=== PATIENT | female | born 1950 | race Caucasian/White ===

== ENCOUNTER 2017-12-31 08:13 | Day surgery (SDC) | payer BC, OTHER ==
[~2017-12-31] VITALS: Ht 157.5 cm; Wt 63.0 kg
[2017-12-31] MEDS ORDERED: LACTATED RINGERS 1,000 ML IV SCH (09:16)
[2017-12-31] MEDS ORDERED: LIDOCAINE-MPF 1%, 2ML INFIL ONE (09:30)
[2017-12-31 10:00] VITALS: BP 154/86
[2017-12-31] MEDS ORDERED: PLEASE ENTER HEIGHT AND WEIGHT MC SCH (10:00)
[2017-12-31] MEDS ORDERED: PLEASE ENTER ALLERGIES MC SCH (10:00)
[2017-12-31] MEDS ORDERED: ATEN25TA PO (10:17)
[2017-12-31] MEDS ORDERED: PANT40TA5 PO (10:17)
[2017-12-31] MEDS ORDERED: FLUO20TA25 PO (10:17)
[2017-12-31] MEDS ORDERED: ALPR0.5T6 PO (10:17)
[2017-12-31] MEDS ORDERED: CHOL4PAC2 PO (10:18)
[2017-12-31] MEDS ORDERED: MIDAZOLAM 1 MG/ML, 2ML ONE (10:25)
[2017-12-31] MEDS ORDERED: FENTANYL PF 100 MCG/2ML ONE (10:25)
[2017-12-31] MEDS ORDERED: SUCCINYLCHOLINE 20 MG/ML, 10ML ONE (10:26)
[2017-12-31] MEDS ORDERED: CEFAZOLIN 1,000 MG ONE ×3 (10:26→13:09)
[2017-12-31] MEDS ORDERED: PROPOFOL 10 MG/ML, 20ML ONE (10:26)
[2017-12-31] MEDS ORDERED: DEXAMETHASONE 4 MG/ML, 1ML ONE ×3 (10:26→13:09)
[2017-12-31] MEDS ORDERED: BUPIVACAINE/PF-EPI 0.25% 1:200K ONE ×2 (12:48→13:11)
[2017-12-31] MEDS ORDERED: VANCOMYCIN 1,000 MG ONE (12:49)
[2017-12-31] MEDS ORDERED: THROMBIN 5,000 UNIT VIAL TP ONE (12:49)
[2017-12-31] MEDS ORDERED: LIDOCAINE/PF 0.5% ,50ML ONE (12:49)
[2017-12-31] MEDS ORDERED: SCOPOLAMINE PATCH, 1.5MG PATCH.TD72 TD ONE ×2 (12:54→13:00)
[2017-12-31] MEDS ORDERED: PROPOFOL 50 ML ONE ×2 (13:03→14:30)
[2017-12-31] MEDS ORDERED: PHENYLEPHRINE 10 MG/ML ONE (13:09)
[2017-12-31] MEDS ORDERED: METOCLOPRAMIDE 5 MG/ML, 2ML ONE (13:09)
[2017-12-31] MEDS ORDERED: ONDANSETRON 2MG/ML, 2ML ONE ×2 (13:09→14:57)
[2017-12-31] MEDS ORDERED: FENTANYL PF 100 MCG/2ML IV PRN (14:00)
[2017-12-31] MEDS ORDERED: MORPHINE SULFATE 4 MG/ML, 1ML IVPush PRN (14:00)
[2017-12-31] MEDS ORDERED: DIPHENHYDRAMINE 50 MG/ML, 1ML IVPush PRN (14:00)
[2017-12-31] MEDS ORDERED: hydrALAzine 20 MG/ML, 1ML IV PRN (14:00)
[2017-12-31] MEDS ORDERED: ONDANSETRON 2MG/ML, 2ML IV PRN (14:00)
[2017-12-31] MEDS ORDERED: OXYcodone 5 MG/5 ML ORAL.SOL UDC PO PRN (14:00)
[2017-12-31] MEDS ORDERED: MEPERIDINE/PF 25MG/0.5ML IVPush PRN (14:00)
[2017-12-31] MEDS ORDERED: LORazepam 2 MG/ML, 1ML IVPush PRN (14:00)
[2017-12-31] MEDS ORDERED: DIAZEPAM 5 MG/ML, 2ML IVPush PRN (14:00)
[2017-12-31] MEDS ORDERED: MIDAZOLAM 1 MG/ML, 2ML IV PRN (14:00)
[2017-12-31] MEDS ORDERED: ALBUTEROL SULFATE 2.5 MG/3 ML NPPB PRN (14:00)
[2017-12-31] MEDS ORDERED: HYDROmorphone 1 MG/ML, 1ML IV PRN (14:00)
[2017-12-31] MEDS ORDERED: LABETALOL 5MG/ML, 20ML IV PRN (14:00)
[2017-12-31] MEDS ORDERED: EPHEDRINE 50 MG/ML, 1ML IM PRN (14:00)
[2017-12-31] MEDS ORDERED: OXYcodone 5 MG/5 ML ORAL.SOL UDC ONE (15:30)
== END 2017-12-31 17:30 | disposition home or self-care (01) ==
LOC: OUT 08:13
PROVIDERS: ATTEND Orthopaedic Surgery Orthopaedic Surgery of the Spine
DX: M51.16 Intervertebral disc disorders with radiculopathy, lumbar region (principal); M48.061 Spinal stenosis, lumbar region without neurogenic claudication; I10 Essential (primary) hypertension; K21.9 Gastro-esophageal reflux disease without esophagitis; F32.9 Major depressive disorder, single episode, unspecified; F41.9 Anxiety disorder, unspecified; Z87.39 Personal history of other diseases of the musculoskeletal system and connective tissue; Z90.49 Acquired absence of other specified parts of digestive tract; Z98.890 Other specified postprocedural states; Z79.899 Other long term (current) drug therapy
CPT/HCPCS: 63030; 63047; 72100; J0330; J0690; J1100; J2001; J2250; J2370; J2405; J2704; J2765; J3010; J3370; J7120